=== PATIENT | female | born 1990 | race African-American/Black ===

== ENCOUNTER 2022-07-29 17:52 | Emergency (ER) | payer MEDICAID ==
[~2022-07-29] VITALS: Ht 172.7 cm; Wt 122.0 kg
[2022-07-30 01:05] LABS: CLARITY URINE CLEAR (CLEAR); COLOR URINE YELLOW (YELLOW); KETONES URINE TRACE (NEGATIVE); LEUKOCYTE ESTERASE URINE NEGATIVE (NEGATIVE); NITRITE URINE NEGATIVE (NEGATIVE); OCCULT BLOOD URINE NEGATIVE (NEGATIVE); PROTEIN URINE NEGATIVE (NEGATIVE); SPECIFIC GRAVITY URINE 1.032 (1.005-1.030)
[2022-07-30 01:22] VITALS: BP 125/68; PULSE 70; RESP 16; TEMP 99
== END 2022-07-30 01:24 | disposition home or self-care (01) ==
LOC: ER 18:12
DX: N89.8 Other specified noninflammatory disorders of vagina (principal); Z00.00 Encounter for general adult medical examination without abnormal findings
CPT/HCPCS: 81003; 87210; 87591; 99284